=== PATIENT | female | born 1990 | race Caucasian/White ===

== ENCOUNTER 2016-12-27 21:54 | Emergency (ER) | payer OTHER ==
--- NOTE | 2016-12-27 22:58 | ED NURSING NOTES ---
Clinical Report - Nurses [facility] [address] [place] [address] 12/27/2016 21:56 Patient: MONTSE ESTRADA TRIAGE Triage time 2220. Acuity: LEVEL 4. Chief Complaint: RIGHT EAR PAIN. --22:25 Nadia Gilbert R.N. 22:22 12/27/16. Pain level now: 01/25. --22:25 Nadia Gilbert R.N. 22:37 12/27/16. BP: 97/63. HR: 70. RR: 18. O2 saturation: 100%. Temp: 98.8 F. Pain level now 01/25. --22:37 Nadia Gilbert R.N. Weight: 51.7 kg stated. Height/Length: 62 inches Per Patient. BMI: 20.9. --22:23 Nadia Gilbert R.N. Medications None. --22:24 Nadia Gilbert R.N. Allergies No Known Drug Allergy. --22:24 Nadia Gilbert R.N. History Arrived by private vehicle. Historian: patient. Accompanied by (tiffanie). No primary care physician. Onset. (2 days ago). She has had a nasal discharge, ear drainage, sinus pain and a headache. PAST MEDICAL HX: Negative. Last normal menstrual period- now. SURGERY HX: . Dental surgery. SOCIAL HX: Former smoker (smoked 1/2 ppd x 3 years, quit 10 years ago). No alcohol use or drug use. --22:25 Nadia Gilbert R.N. PROBLEMS: no known problems. Interventions ID band on patient. To treatment room. --22:25 Nadia Gilbert R.N. PHYSICAL ASSESSMENT 22:20. Ambulatory to room. GENERAL / NEURO / PSYCH: Alert. Appears in pain. HEENT: No facial asymmetry noted. ( c/o sinus pressure and cough, has "bump" at top of ear, and thinks ear is swolen). CVS: Capillary refill less than 2 seconds. SKIN: Skin is warm and dry. --22:27 Nadia Gilbert R.N. NURSING PROGRESS NOTES 22:20. Patient gowned. Reassurance given. Patient identifiers checked. Call light placed in reach. Patient placed in chair. Patient ready for evaluation- chart flagged. --22:26 Nadia Gilbert R.N. 23:20 12/27/2016 Augmentin (Amoxicillin-Pot Clavulanate) PO Tablets 875 mg given. Allergies verified and confirmed 5 rights. --23:32 Nadia Gilbert R.N. 23:20 12/27/2016 Ibuprofen PO Tablets 800 mg given. Allergies verified and confirmed 5 rights. --23:32 Ndaia Gilbert R.N. DISPOSITION / DISCHARGE 23:20. Condition at departure: unchanged and stable. No learning barriers present. Discharge instructions provided and reviewed with the patient. Reviewed medication(s) (augmentin, motrin). Patient verbalized understanding. Written instructions provided in Iraqi. The patient was discharged home. She left the Emergency Department ambulatory and via private vehicle. --23:34 Nadia Gilbert R.N. 23:20 12/27/16. BP: deferred. HR: deferred. RR: deferred. O2 saturation: deferred. Temp: deferred. Pain level now: 02/25. --23:34 Nadia Gilbert R.N. Locked/Released at 12/27/2016 23:34 by Nadia Gilbert R.N.
--- NOTE | 2016-12-27 22:58 | ED CLINICAL REPORT ---
Clinical Report - Physicians/Mid Levels Located Within [facility] [address] [place] [address] 12/27/2016 21:56 Patient: MONTSE ESTRADA Time Seen: 22:42; initial patient contact, initial documentation, patient care assumed. Arrived- By private vehicle. Historian- patient. HISTORY OF PRESENT ILLNESS Chief Complaint: EARACHE. This started about 2 days ago and is still present. Location- right ear. The pain is described as moderate. The patient has had ear pain. She has had mild right-sided ear drainage. The ear drainage on the right has been associated with ear pain. No hearing loss, complaint of foreign body in the ear, ear trauma, recent barotrauma or tinnitus. No sore throat. She has had nasal congestion, sinus pressure and a nasal discharge. (ears feel clogged especially the L for 6 mos or longer). Similar symptoms previously: None. Recent medical care: Not recently seen/assessed. REVIEW OF SYSTEMS No fever or cough. All systems otherwise negative, except as recorded above. PAST HISTORY Negative. SOCIAL HISTORY Former smoker. Not exposed to second-hand smoke at home. No alcohol use or drug use. No recent travel. Is a local resident. FAMILY HISTORY Negative. ADDITIONAL NOTES The nursing notes have been reviewed with agreement regarding the chief complaint, HPI, ROS, PMH and patient medications and allergies. PHYSICAL EXAM Vital Signs: 12/27/2016 22:37 BP: 97/63. HR: 70. RR: 18. O2 saturation: 100%. Temp: 98.8 F. Have been reviewed as normal and appear to be correct. Appearance: Alert. No acute distress. Eyes: Eyes normal inspection. ENT: (eczema type rash seen behind L ear). Nose: Nose normal. Throat: Pharynx abnormal. (post nasal drip seen). Ear (left): There is fluid behind the tympanic membrane. No bulging of the tympanic membrane. Left tympanic membrane abnormal. Left ear normal. Ear (right): There is moderate swelling of the external canal, moderate erythema of the tympanic membrane and fluid behind the tympanic membrane. No bulging of the tympanic membrane. Right ear abnormal or tympanic membrane abnormal. Neck: Normal inspection. Neck supple. CVS: Normal heart rate and rhythm. Heart sounds normal. Respiratory: No respiratory distress. Breath sounds normal. Back: Normal inspection. Skin: Skin warm and dry. Normal skin color. No rash. Normal skin turgor. Extremities: Extremities exhibit normal ROM. No lower extremity edema. Neuro: Oriented X 3. No motor deficit. No sensory deficit. PROGRESS AND PROCEDURES Patient counseled in person regarding the patient's stable condition and diagnosis. Differential Diagnosis: Other possible considerations: uri, flu, viral illness, sinusitis, aoe, aom, perforated tm, allergies. Above considerations are based on history and physical exam. Differential diagnosis was discussed with patient. Disposition: Discharged home in good and unchanged condition (22:57). Condition: good and stable. CLINICAL IMPRESSION Acute suppurative right otitis media. No perforation of right tympanic membrane. Acute localized right otitis externa with cellulitis of the external canal. INSTRUCTIONS (over the counter sudafed to help unclog ears, as discussed). Warnings: GENERAL WARNINGS: Return or contact your physician immediately if your condition worsens or changes unexpectedly, if not improving as expected, or if other problems arise. Specifically return if problem worsens. Prescription Medications: Cortisporin otic suspension: Instill 4 drops into affected ear every 6 hours for 1 week. Dispense ten (10) mL. No refills. Substitution is permissible. Augmentin 875 mg: take 1 tablet orally every 12 hours for 7 days. Dispense fourteen (14). No refills. Substitution is permissible. Follow-up: Follow up with your doctor in about three days even if well. Call for an appointment. Summary of care provided to patient. Understanding of the discharge instructions verbalized by patient. (Electronically signed by Elvira Lopez A.R.N.P. 12/27/2016 23:11)
--- NOTE | 2016-12-27 22:58 | ED NURSING NOTES ---
Clinical Report - Nurses [facility] [address] [place] [address] 12/27/2016 21:56 Patient: MONTSE ESTRADA TRIAGE Triage time 2220. Acuity: LEVEL 4. Chief Complaint: RIGHT EAR PAIN. --22:25 Nadia Gilbert R.N. 22:22 12/27/16. Pain level now: 01/25. --22:25 Nadia Gilbert R.N. 22:37 12/27/16. BP: 97/63. HR: 70. RR: 18. O2 saturation: 100%. Temp: 98.8 F. Pain level now 01/25. --22:37 Nadia Gilbert R.N. Weight: 51.7 kg stated. Height/Length: 62 inches Per Patient. BMI: 20.9. --22:23 Nadia Gilbert R.N. Medications None. --22:24 Nadia Gilbert R.N. Allergies No Known Drug Allergy. --22:24 Ndaia Gilbert R.N. History Arrived by private vehicle. Historian: patient. Accompanied by (tiffanie). No primary care physician. Onset. (2 days ago). She has had a nasal discharge, ear drainage, sinus pain and a headache. PAST MEDICAL HX: Negative. Last normal menstrual period- now. SURGERY HX: . Dental surgery. SOCIAL HX: Former smoker (smoked 1/2 ppd x 3 years, quit 10 years ago). No alcohol use or drug use. --22:25 Nadia Gilbert R.N. PROBLEMS: no known problems. Interventions ID band on patient. To treatment room. --22:25 Nadia Gilbert R.N. PHYSICAL ASSESSMENT 22:20. Ambulatory to room. GENERAL / NEURO / PSYCH: Alert. Appears in pain. HEENT: No facial asymmetry noted. ( c/o sinus pressure and cough, has "bump" at top of ear, and thinks ear is swolen). CVS: Capillary refill less than 2 seconds. SKIN: Skin is warm and dry. --22:27 Nadia Gilbert R.N. NURSING PROGRESS NOTES 22:20. Patient gowned. Reassurance given. Patient identifiers checked. Call light placed in reach. Patient placed in chair. Patient ready for evaluation- chart flagged. --22:26 Nadia Gilbert R.N. 23:20 12/27/2016 Augmentin (Amoxicillin-Pot Clavulanate) PO Tablets 875 mg given. Allergies verified and confirmed 5 rights. --23:32 Nadia Gilbert R.N. 23:20 12/27/2016 Ibuprofen PO Tablets 800 mg given. Allergies verified and confirmed 5 rights. --23:32 Nadia Gilbert R.N. DISPOSITION / DISCHARGE 23:20. Condition at departure: unchanged and stable. No learning barriers present. Discharge instructions provided and reviewed with the patient. Reviewed medication(s) (augmentin, motrin). Patient verbalized understanding. Written instructions provided in Cuban. The patient was discharged home. She left the Emergency Department ambulatory and via private vehicle. --23:34 Nadia Gilbert R.N. 23:20 12/27/16. BP: deferred. HR: deferred. RR: deferred. O2 saturation: deferred. Temp: deferred. Pain level now: 02/25. --23:34 Nadia Gilbert R.N. Locked/Released at 12/27/2016 23:34 by Nadia Gilbert R.N.
--- NOTE | 2016-12-27 23:34 | ED DISCHARGE INSTRUCTIONS ---
Patient: MONTSE ESTRADA General Instructions [facility] VisitID: [id number] [place] [address] 26y, F Registration Date/Time: 12/27/2016 Acute suppurative right otitis media. No perforation of right tympanic membrane. Acute localized right otitis externa with cellulitis of the external canal. INSTRUCTIONS (over the counter sudafed to help unclog ears, as discussed). Warnings: GENERAL WARNINGS: Return or contact your physician immediately if your condition worsens or changes unexpectedly, if not improving as expected, or if other problems arise. Specifically return if problem worsens. Prescription Medications: Cortisporin otic suspension: Instill 4 drops into affected ear every 6 hours for 1 week. Dispense ten (10) mL. No refills. Substitution is permissible. Augmentin 875 mg: take 1 tablet orally every 12 hours for 7 days. Dispense fourteen (14). No refills. Substitution is permissible. Follow-up: Follow up with your doctor in about three days even if well. Call for an appointment. Summary of care provided to patient. Understanding of the discharge instructions verbalized by patient. ADDITIONAL INFORMATION Middle Ear Infection (Adult) You have an infection of the middle ear (the space behind the eardrum). It can occur as a result of the common cold. This is because congestion can block the internal passage (eustachian tube) that drains fluid from the middle ear. When the middle ear fills with fluid, bacteria can grow there and cause an infection. Oral antibiotics are used to treat this illness, not ear drops. Symptoms usually start to improve within 1-2 days of treatment. Home Care: Finish all of the antibiotic medicine prescribed, even though you may feel better after the first few days. You may use acetaminophen (Tylenol) or ibuprofen (Motrin, Advil) to control pain, unless something else was prescribed. [NOTE: If you have chronic liver or kidney disease or have ever had a stomach ulcer or GI bleeding, talk with your doctor before using these medicines.] (Do not give aspirin to anyone under 18 years of age who is ill with a fever. It may cause severe liver damage.) Follow Up with your doctor or this facility in two weeks if all symptoms have not cleared, or if hearing does not return to normal within one month. Get Prompt Medical Attention if any of the following occur: Ear pain gets worse or does not improve after three days of treatment Unusual drowsiness or confusion Neck pain, stiff neck or headache Fluid or blood draining from the ear canal Fever of 100.4F (38C) or higher after 3 days of antibiotics, or as directed by your healthcare provider Convulsion (seizure) Middle Ear Infection, Wait & See Abx Tx (Child Over 6 Months) Your child has an infection of the middle ear (the space behind the eardrum).It can occur as a result of the common cold. This is because congestion can block the internal passage (Eustachian Tube) that drains fluid from the middle ear.When the middle ear fills with fluid, bacteria or viruses may grow there, causing an infection. Until recently, antibiotics were used to treat almost all cases of middle ear infection. Doctors now know that most cases of ear infection will get better without antibiotics. The reasons for not using antibiotics include: Antibiotics do not relieve pain in the first 24 hours and only have a minimal effect on pain after that. Antibiotics commonly prescribed for ear infection may cause diarrhea or other side effects. Antibiotics do not help with viral infections. Antibiotics do not treat middle ear fluid. Frequent use of antibiotics cause bacteria to become resistant, making it harder to treat in the future. Certain antibiotics are very expensive. For these reasons, you are being given a Wait & See prescription. That means treating your child only with acetaminophen (Tylenol) or ibuprofen (Childrens Motrin) and pain-relieving ear drops for the first two days to see if the condition improves. Fill the antibiotic prescription 48 hours (two days) after todays visit, only if your child is not better or is getting worse. Home Care: Fluids: Fever increases water loss from the body. For infants under 1 year old, continue regular formula or breast feedings. Between feedings give plain water or an oral rehydration solution. You can buy this as Pedialyte, Infalyte, or Rehydralyte from grocery and drug stores.No prescription isrequired. For children over 1 year old, give plenty of fluids like water, juice, 7-Up, johann-breanne, lemonade, or popsicles. Sports drinks such as Gatorade or Powerade are also acceptable. Energy drinks containing caffeine should never be given. Eating: If your child doesnt want to eat solid foods, its okay for a few days, as long as the child drinks lots of fluid. Rest: Keep children with fever at home resting or playing quietly.Your child may return to daycare or school when the fever is gone and she/he is eating well and feeling better. Fever and pain: Your child may use acetaminophen (Tylenol) to control pain. In children over 6 months, use ibuprofen (Children's Motrin) instead of Tylenol. [NOTE: If your child has chronic liver or kidney disease or ever had a stomach ulcer or GI bleeding, talk with your doctor before using these medicines. Aspirin should never be used in anyone under 18 years of age who is ill with a fever.It may cause severe liver damage.] Ear drops: Pain-relieving ear drops may be prescribed.These should be used every 2 hours as needed for ear pain, or as directed. If you were not given a prescription for these ear drops and if ibuprofen alone is not controlling pain, contact your doctor and ask for a prescription. Antibiotics: Fill the antibiotic prescription 48 hours (two days) after todays visit, only if your child is not better or is getting worse. Once you start the antibiotic, finish all of the medicine prescribed, even though your child may feel better after the first few days. Follow Up: Sometimes the infection does not respond fully to the first antibiotic. A different medicine may be needed. Therefore, make an appointment to haveyour childsears rechecked in two weeks to be certain the infection has cleared. Return Promptly or contact your doctor if any of the following occur: Symptoms get worse or do not start to improve after two days of treatment Fever of 100.4F (38C) oral or 101.4F (38.5C) rectal or higher, not better with fever medication Unusual fussiness, drowsiness, or confusion No wet diapers for 8 hours, no tears when crying, or dry mouth Headache, neck pain, or stiff neck New rash appears Frequent diarrhea or vomiting Fluid or bloody drainage from the ear Convulsion (seizure) External Ear Infection [Adult] This is an infection in the ear canal due to an overgrowth of bacteria or fungus. This often occurs a few days after water gets trapped in the ear canal (swimming or bathing). It may also occur after cleaning too deeply in the ear canal with a cotton swab or other object. Sometimes hair care products get into the ear canal and cause this problem. There may be itching, redness, drainage, or swelling of the ear canal and temporary loss of hearing. Home Care: Do not try to clean the ear canal. That could push pus and bacteria deeper into the canal. Use the drops prescribed to reduce swelling and fight the infection. If an EAR WICK was placed in the ear canal, apply drops right onto the end of the wick. The wick will draw the medicine into the ear canal even if it is swollen closed. Do not allow water to get into your ear when bathing. No swimming during this time. A cotton ball may be loosely placed in the outer ear to absorb any drainage. You may use acetaminophen (Tylenol) or ibuprofen (Motrin, Advil) to control pain, unless another medicine was prescribed. [NOTE: If you have chronic liver or kidney disease or ever had a stomach ulcer or GI bleeding, talk with your doctor before using these medicines.] Preventing Future Infections: You can usually avoid this problem by using an eardrop that removes the water from your ear canal when you feel there is water trapped there. You can get these drops over the counter (Swim Ear, Aqua Ear and other brands). Follow Up with your doctor or this facility in one week or as instructed by our staff. Get Prompt Medical Attention if any of the following occur: Ear pain becomes worse or does not begin to improve after 3 days of treatment Redness or swelling of the outer ear occurs or gets worse Headache, painful or stiff neck, Feeling drowsy or confused Fever of 100.4F (38C) or higher, or as directed by your healthcare provider Seizure Amoxicillin Trihydrate, Clavulanate Potassium Oral tablet What is this medicine? AMOXICILLIN; CLAVULANIC ACID (a mox i JOSE in; SHERRIE bates ic id) is a penicillin antibiotic. It is used to treat certain kinds of bacterial infections. It will not work for colds, flu, or other viral infections. How should I use this medicine? Take this medicine by mouth with a full glass of water. Follow the directions on the prescription label. Take at the start of a meal. Do not crush or chew. If the tablet has a score line, you may cut it in half at the score line for easier swallowing. Take your medicine at regular intervals. Do not take your medicine more often than directed. Take all of your medicine as directed even if you think you are better. Do not skip doses or stop your medicine early. Talk to your shellfish processing machine tender regarding the use of this medicine in children. Special care may be needed. What side effects may I notice from receiving this medicine? Side effects that you should report to your doctor or health eye care professional as soon as possible: allergic reactions like skin rash, itching or hives, swelling of the face, lips, or tongue breathing problems dark urine fever or chills, sore throat redness, blistering, peeling or loosening of the skin, including inside the mouth seizures trouble passing urine or change in the amount of urine unusual bleeding, bruising unusually weak or tired white patches or sores in the mouth or throat Side effects that usually do not require medical attention (report to your doctor or health eye care professional if they continue or are bothersome): diarrhea dizziness headache nausea, vomiting stomach upset vaginal or anal irritation What may interact with this medicine? allopurinol anticoagulants control pills methotrexate probenecid What if I miss a dose? If you miss a dose, take it as soon as you can. If it is almost time for your next dose, take only that dose. Do not take double or extra doses. Where should I keep my medicine? Keep out of the reach of children. Store at room temperature below 25 degrees C (77 degrees F). Keep container tightly closed. Throw away any unused medicine after the expiration date. What should I tell my health care provider before I take this medicine? They need to know if you have any of these conditions: bowel disease, like colitis kidney disease liver disease mononucleosis an unusual or allergic reaction to amoxicillin, penicillin, cephalosporin, other antibiotics, clavulanic acid, other medicines, foods, dyes, or preservatives or trying to get breast-feeding What should I watch for while using this medicine? Tell your doctor or health eye care professional if your symptoms do not improve. Do not treat diarrhea with over the counter products. Contact your doctor if you have diarrhea that lasts more than 2 days or if it is severe and watery. If you have diabetes, you may get a false-positive result for sugar in your urine. Check with your doctor or health eye care professional. control pills may not work properly while you are taking this medicine. Talk to your doctor about using an extra method of control. You have been given the following additional information: Otitis Media, Abx Tx (Adult) Otitis Media, Wait And See Abx Tx (Child Over 6 Mo) External Ear Infection (Adult) Amoxicillin Trihydrate, Clavulanate Potassium Oral tablet (Electronically signed by Elvira Lopez A.R.N.P. 12/27/2016 23:11)
--- NOTE | 2016-12-27 23:34 | ED MAR SUMMARY ---
..... Medication Administration Record [facility] [address] [place] [address] Patient: MONTSE ESTRADA Visit ID: [id number] 26y, F Weight: 51.7 kg Height/Length: 62 in BMI: 20.9 ALLERGIES: No Known Drug Allergy Given 23:12/27/2016 Nadia Gilbert, RMaxN. Medication Administered: AUGMENTIN [PO] (AMOXICILLIN-POT CLAVULANATE), Dose: 875 mg Tablets PO. Medication Ordered: Augmentin PO 875 mg (NOW). Given 23:12/27/2016 Nadia Gilbert, R.N. Medication Administered: IBUPROFEN [PO], Dose: 800 mg Tablets PO. Medication Ordered: Ibuprofen PO 800 mg (NOW).
--- NOTE | 2016-12-27 23:34 | ED MED RECONCILIATION SUMMARY ---
Patient: MONTSE ESTRADA Medication Reconciliation Report [facility] VisitID: [id number] [place] [address] 26y, F Registration Date/Time: 12/27/2016 Weight: 51.7 kg Height/Length: 62 in. BMI: 20.9 ALLERGIES: No Known Drug Allergy The patient's Home Medications are listed below: NONE. The source(s) of the original Home Medication information: Not obtained. The following Medications were given to the patient in the Emergency Department: Augmentin [PO] PO 875 mg, administered: 12/27/2016 11:20:00 PM Ibuprofen [PO] PO 800 mg, administered: 12/27/2016 11:20:00 PM The following Medications were prescribed to the patient: Cortisporin otic suspension: Instill 4 drops into affected ear every 6 hours for 1 week. Dispense ten (10) mL. No refills. Substitution is permissible. -- Elvira Lopez, Shady.R.N.P. Augmentin 875 mg: take 1 tablet orally every 12 hours for 7 days. Dispense fourteen (14). No refills. Substitution is permissible. -- Elvira Lopez, Shady.R.N.P.
--- NOTE | 2016-12-27 23:34 | ED MAR SUMMARY ---
..... Medication Administration Record [facility] [address] [place] [address] Patient: MONTSE ESTRADA Visit ID: [id number] 26y, F Weight: 51.7 kg Height/Length: 62 in BMI: 20.9 ALLERGIES: No Known Drug Allergy Given 23:12/27/2016 Nadia Gilbert, RMaxN. Medication Administered: AUGMENTIN [PO] (AMOXICILLIN-POT CLAVULANATE), Dose: 875 mg Tablets PO. Medication Ordered: Augmentin PO 875 mg (NOW). Given 23:12/27/2016 Nadia Gilbert, R.N. Medication Administered: IBUPROFEN [PO], Dose: 800 mg Tablets PO. Medication Ordered: Ibuprofen PO 800 mg (NOW).
--- NOTE | 2016-12-27 23:34 | ED MED RECONCILIATION SUMMARY ---
Patient: MONTSE ESTRADA Medication Reconciliation Report [facility] VisitID: [id number] [place] [address] 26y, F Registration Date/Time: 12/27/2016 Weight: 51.7 kg Height/Length: 62 in. BMI: 20.9 ALLERGIES: No Known Drug Allergy The patient's Home Medications are listed below: NONE. The source(s) of the original Home Medication information: Not obtained. The following Medications were given to the patient in the Emergency Department: Augmentin [PO] PO 875 mg, administered: 12/27/2016 11:20:00 PM Ibuprofen [PO] PO 800 mg, administered: 12/27/2016 11:20:00 PM The following Medications were prescribed to the patient: Cortisporin otic suspension: Instill 4 drops into affected ear every 6 hours for 1 week. Dispense ten (10) mL. No refills. Substitution is permissible. -- Elvria Lopez, Shady.R.N.P. Augmentin 875 mg: take 1 tablet orally every 12 hours for 7 days. Dispense fourteen (14). No refills. Substitution is permissible. -- Elvira Lopez, Shady.R.N.P.
--- NOTE | 2016-12-27 23:34 | ED ORDER SUMMARY ---
..... Patient: MONTSE ESTRADA OrderSheet [facility] VisitID: [id number] [address] [place] [address] 26y, F Registration Date/Time: 12/27/2016 ORDER SHEET Weight: 51.7 kg (stated) Allergies: No Known Drug Allergy GENERAL ORDERS: MEDICATION ORDERS: Augmentin PO 875 mg (NOW) (23:31 12/27/2016 DDean R.N. per protocol) (23:32 DDean R.N.) Ibuprofen PO 800 mg (NOW) (23:31 12/27/2016 DDean R.N. per protocol) (23:32 DDean R.N.) IV FLUIDS: ORDER SHEET NOTES: [Electronically signed by Nadia Gilbert R.N. (23:34 12/27/2016)] [Electronically locked/signed by Nadia Gilbert R.N. (23:34 12/27/2016)]
--- NOTE | 2016-12-27 23:34 | ED ORDER SUMMARY ---
..... Patient: MONTSE ESTRADA OrderSheet [facility] VisitID: [id number] [address] [place] [address] 26y, F Registration Date/Time: 12/27/2016 ORDER SHEET Weight: 51.7 kg (stated) Allergies: No Known Drug Allergy GENERAL ORDERS: MEDICATION ORDERS: Augmentin PO 875 mg (NOW) (23:31 12/27/2016 DDean R.N. per protocol) (23:32 DDean R.N.) Ibuprofen PO 800 mg (NOW) (23:31 12/27/2016 DDean R.N. per protocol) (23:32 DDean R.N.) IV FLUIDS: ORDER SHEET NOTES: [Electronically signed by Nadia Gilbert R.N. (23:34 12/27/2016)] [Electronically locked/signed by Nadia Gilbert R.N. (23:34 12/27/2016)]
== END 2016-12-27 23:20 | disposition home or self-care (01) ==
LOC: ED SRH 21:54
DX: H66.001 Acute suppurative otitis media without spontaneous rupture of ear drum, right ear (principal); H60.501 Unspecified acute noninfective otitis externa, right ear; H60.11 Cellulitis of right external ear; Z87.891 Personal history of nicotine dependence